=== PATIENT | female | born 1975 | race Caucasian/White ===

== ENCOUNTER 2019-01-05 19:39 | Emergency (ER) | payer SELFPAY ==
--- NOTE | 2019-01-05 19:57 | EDM.PDOC ---
ED HPI GENERAL MEDICAL PROBLEM - General Chief Complaint: General Stated Complaint: MEDICAL CLEARANCE Time Seen by Provider: 01/05/19 19:56 Source of Information: Reports: Patient History Limitations: Reports: No Limitations - History of Present Illness INITIAL COMMENTS - FREE TEXT/NARRATIVE: HISTORY AND PHYSICAL: History of present illness: Patient is a 43-year-old female who presents to the emergency room by law enforcement for medical clearance exam. Patient states she takes gabapentin daily and has this medication at home. She was brought to the emergency room for evaluation for this. Enforcement states that she will be released tonight on bail and should be a low take her medications when she gets home. Patient offers no other concerns or complaints. She is asymptomatic. Denies any injury, trauma or falls. Review of systems: As per history of present illness and below otherwise all systems reviewed and negative. Past medical history: As per history of present illness and as reviewed below otherwise noncontributory. Surgical history: As per history of present illness and as reviewed below otherwise noncontributory. Social history: See social history for further information Family history: As per history of present illness and as reviewed below otherwise noncontributory. Physical exam: General: Well-developed and well-nourished 43-year-old female. Alert and oriented. Nontoxic appearing and in no acute distress. HEENT: Atraumatic, normocephalic, pupils equal and reactive bilaterally, negative for conjunctival pallor or scleral icterus, mucous membranes moist, TMs normal bilaterally, throat clear, neck supple, nontender, trachea midline. No drooling or trismus noted. No meningeal signs. No hot potato voice noted. Lungs: Clear to auscultation, breath sounds equal bilaterally, chest nontender. Heart: S1S2, regular rate and rhythm without overt murmur Abdomen: Soft, nondistended, nontender. Skin: Intact, warm, dry. No lesions or rashes noted. Extremities: Atraumatic, moves all extremities per self without difficulty or deficits, negative for cords or calf pain. Neurovascular unremarkable. Neuro: Awake, alert, oriented. Cranial nerves II through XII unremarkable. Cerebellum unremarkable. Motor and sensory unremarkable throughout. Exam nonfocal. Notes: Patient declines the need for any diagnostics at this time. Vital signs are stable. Supportive care measures were reviewed and discussed. Voices understanding and is agreeable to plan of care. Denies any further questions or concerns at this time. Diagnostics: None Therapeutics: None Prescription: None Impression: Encounter for medical screening exam Plan: 1. Take your home medications as directed. 2. Follow up with primary care as directed. Return to ED as needed as discussed. Definitive disposition and diagnosis as appropriate pending reevaluation and review of above. - Related Data Allergies Allergy/AdvReac Type Severity Reaction Status Date / Time iodine Allergy Anaphylactic Verified 01/05/19 19:56 Shock shellfish derived Allergy Anaphylactic Verified 01/05/19 19:56 Shock Home Meds: Home Meds ALPRAZolam [Xanax] 01/05/19 [History] FLUoxetine [PROzac] 01/05/19 [History] Gabapentin [Neurontin] 800 mg PO Q6HR 01/05/19 [History] New Anti Psychotic Medication 01/05/19 [History] ED ROS GENERAL - Review of Systems Review Of Systems: Comprehensive ROS is negative, except as noted in HPI. ED EXAM, GENERAL - Physical Exam Exam: See Below (See dictation) Course - Vital Signs Last Recorded V/S: Last Vital Signs Temp 97 F 01/05/19 19:57 Pulse 109 H 01/05/19 19:57 Resp 20 01/05/19 19:57 BP 145/82 H 01/05/19 19:57 Pulse Ox 99 01/05/19 19:57 Departure - Departure Time of Disposition: 19:57 Disposition: Home, Self-Care 01 Clinical Impression: Encounter for medical screening examination - Discharge Information Instructions: Medical Screening Exam Referrals: PCP,None [Ordering Only Provider] - Forms: ED Department Discharge Additional Instructions: The following information is given to patients seen in the emergency department who are being discharged to home. This information is to outline your options for follow-up care. We provide all patients seen in our emergency department with a follow-up referral. The need for follow-up, as well as the timing and circumstances, are variable depending upon the specifics of your emergency department visit. If you don't have a primary care physician on staff, we will provide you with a referral. We always advise you to contact your personal physician following an emergency department visit to inform them of the circumstance of the visit and for follow-up with them and/or the need for any referrals to a consulting specialist. The emergency department will also refer you to a specialist when appropriate. This referral assures that you have the opportunity for follow-up care with a specialist. All of these measure are taken in an effort to provide you with optimal care, which includes your follow-up. Under all circumstances we always encourage you to contact your private physician who remains a resource for coordinating your care. When calling for follow-up care, please make the office aware that this follow-up is from your recent emergency room visit. If for any reason you are refused follow-up, please contact the [facility] Emergency Department at and asked to speak to the emergency department charge nurse. [facility] [address] [place] [id number] [facility] [address] [place] [id number] 1. Take your home medications as directed. 2. Follow up with primary care as directed. Return to ED as needed as discussed.
== END 2019-01-05 20:00 | disposition home or self-care (01) ==
LOC: MW.ED 19:39
DX: Z13.9 Encounter for screening, unspecified (principal); Z91.048 Other nonmedicinal substance allergy status; Z91.013 Allergy to seafood; Z79.899 Other long term (current) drug therapy
CPT/HCPCS: 99282

== ENCOUNTER 2019-07-07 12:44 | Emergency (ER) | payer SELFPAY ==
--- NOTE | 2019-07-07 13:19 | EDM.PDOC ---
ED HPI GENERAL MEDICAL PROBLEM - General Chief Complaint: General Stated Complaint: MEDICAL CLEARNACE Time Seen by Provider: 07/07/19 13:00 Source of Information: Reports: Patient History Limitations: Reports: No Limitations - History of Present Illness INITIAL COMMENTS - FREE TEXT/NARRATIVE: Patient is 43-year-old female with no medical history but psychiatric history presenting with complaint for medical clearance. Patient is under police custody. Patient has no medical complaints or psychiatric complaints at this time. Patient reports no physical injuries. Patient states she otherwise feels well. Patient denies any drug or alcohol use. Patient denies depression , suicidal ideations, homicidal ideations. Pmhx: None Pshx: None Family Hx: noncontributory Smoking history? no Etoh use? none Drug use? none Review of systems performed otherwise negative. I have reviewed the triage vital signs Const: Well nourished, well developed, appears stated age. No obvious trauma or evidence of intoxication. Eyes: PERRL, no conjunctival injection HENT: NCAT, Neck supple without meningismus CV: RRR, Warm, well-perfused extremities RESP: CTAB, Unlabored respiratory effort GI: soft, non-tender, non-distended, no masses MSK: No gross deformities appreciated Skin: Warm, dry. No rashes Neuro: Alert, issue clerk II-XII grossly intact. Sensation and motor function of extremities grossly intact. Psych: Appropriate mood and affect Assessment and plan: 43-year-old female presenting for medical clearance. Patient does not demonstrate any evidence of intoxication or physical injuries. Patient has no medical complaints at this time. Patient is appropriate for police custody. - Related Data Allergies Allergy/AdvReac Type Severity Reaction Status Date / Time iodine Allergy Anaphylactic Verified 07/07/19 12:57 Shock shellfish derived Allergy Anaphylactic Verified 07/07/19 12:57 Shock Home Meds: Home Meds . 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 Musculoskeletal History: Reports: None Neurological History: Reports: None Psychiatric History: Reports: None Endocrine/Metabolic History: Reports: None Hematologic History: Reports: None Immunologic History: Reports: None Oncologic (Cancer) History: Reports: None Dermatologic History: Reports: None - Infectious Disease History Infectious Disease History: Reports: None - Past Surgical History Head Surgeries/Procedures: Reports: None Social & Family History - Family History Family Medical History: Noncontributory - Tobacco Use Smoking Status *Q: Current Every Day Smoker Years of Tobacco use: 20 Packs/Tins Daily: 0.5 Used Tobacco, but Quit: No Second Hand Smoke Exposure: No - Caffeine Use Caffeine Use: Reports: Soda - Recreational Drug Use Recreational Drug Use: No ED ROS GENERAL - Review of Systems Review Of Systems: See Below ED EXAM, GENERAL - Physical Exam Exam: See Below Course - Vital Signs Last Recorded V/S: Last Vital Signs Temp 36.5 C 07/07/19 12:58 Pulse 72 07/07/19 13:26 Resp 17 07/07/19 13:26 BP 108/58 L 07/07/19 13:26 Pulse Ox 97 07/07/19 13:26 Departure - Departure Time of Disposition: 13:19 Disposition: Home, Self-Care 01 Clinical Impression: Encounter for medical screening examination - Discharge Information Instructions: Medical Screening Exam Referrals: PCP,None [Primary Care Provider] - Forms: ED Department Discharge Additional Instructions: The following information is given to patients seen in the emergency department who are being discharged to home. This information is to outline your options for follow-up care. We provide all patients seen in our emergency department with a follow-up referral. The need for follow-up, as well as the timing and circumstances, are variable depending upon the specifics of your emergency department visit. If you don't have a primary care physician on staff, we will provide you with a referral. We always advise you to contact your personal physician following an emergency department visit to inform them of the circumstance of the visit and for follow-up with them and/or the need for any referrals to a consulting specialist. The emergency department will also refer you to a specialist when appropriate. This referral assures that you have the opportunity for follow-up care with a specialist. All of these measure are taken in an effort to provide you with optimal care, which includes your follow-up. Under all circumstances we always encourage you to contact your private physician who remains a resource for coordinating your care. When calling for follow-up care, please make the office aware that this follow-up is from your recent emergency room visit. If for any reason you are refused follow-up, please contact the [facility] Emergency Department at and asked to speak to the emergency department charge nurse. Sepsis Event Note - Evaluation Sepsis Screening Result: No Definite Risk - Focused Exam Vital Signs: Vital Signs Temp Pulse Resp BP Pulse Ox 07/07/19 13:26 72 17 108/58 L 97 07/07/19 12:58 36.5 C 82 18 113/70 99 Date Exam was Performed: 07/07/19 Time Exam was Performed: 14:21
== END 2019-07-07 13:27 | disposition home or self-care (01) ==
LOC: MW.ED 12:44
CPT/HCPCS: 99282; 99283

== ENCOUNTER 2020-12-12 21:45 | Emergency (ER) | payer MEDICAID ==
[2020-12-12] MEDS ORDERED: Ketorolac 15 MG/ML SDV IM ONE (22:24)
[2020-12-12] MEDS ORDERED: Amoxicillin/Clavulanate K 875-125 MG Tab PO ONE (23:19)
--- NOTE | 2020-12-12 23:23 | EDM.PDOC ---
ED HPI GENERAL MEDICAL PROBLEM - General Chief Complaint: ENT Problem Stated Complaint: LIPS SWELLING, POSSIBLE ABCESS TOOTH Time Seen by Provider: 12/12/20 22:25 - History of Present Illness INITIAL COMMENTS - FREE TEXT/NARRATIVE: CHIEF COMPLAINT(S): "I believe I have an abscessed tooth." HISTORY OF PRESENT ILLNESS: This is a 45-year-old with 1 with a past medical history of dental care who comes to the emergency department with a chief complaint of "I believe I have an abscessed tooth." Patient states that she is believed she has an abscessed tooth. She states that she has been experiencing a toothache along the left upper tooth. She denies any fevers, chills, trismus, drooling, stridor. She denies any vision changes including double vision. She states that she has never had this before but rates her pain as 10 out of 10. She states it is improved now 10 to 7 out of 10 and describes it as a throbbing sensation. She states that the left side her face has become swollen. She has tried Aleve and Tylenol without any relief. She denies any exacerbating or relieving factors. She states this is been going on for a couple of days. REVIEW OF SYSTEMS: Constitutional: Denies fever, chills. Eyes: Denies eye pain Ears, Nose, Mouth, & Throat: Positive for left-sided dental pain and left-sided facial swelling. Denies earache, sore throat, drooling, trismus Cardiovascular: Denies chest pain Respiratory: Denies shortness of breath Gastrointestinal: Denies Nausea, vomiting, diarrhea, hematochezia. Genitourinary: Denies hematuria Skin:Denies a rash MSK: Denies joint pain Neurological: Denies blurred vision Psychiatric: Denies depression PAST MEDICAL HISTORY: As per history of present illness and as reviewed below otherwise noncontributory. SURGICAL HISTORY: As per history of present illness and as reviewed below otherwise noncontributory. SOCIAL HISTORY: As per history of present illness and as reviewed below otherwise noncontributory. FAMILY HISTORY: As per history of present illness and as reviewed below otherwise noncontributory. EXAMINATION OF ORGAN SYSTEMS/BODY AREAS: Constitutional: Blood pressure was 119/81, heart rate 101, respiratory rate 14 with an oxygen saturation 98% on room air. Temperature 36.2 General: Well-appearing woman who is in no acute distress Psychiatric: Appropriate mood and affect. HEad: Left-sided jaw swelling Eyes: No scleral icterus or conjunctival erythema pupils are equal round reactive to light. Extraocular movements intact. No nystagmus noted. ENMT: Moist mucous membranes. No pharyngeal erythema there are multiple dental caries on upper and lower jaw. There is mild gum erythema on the left upper jaw without any identifiable abscess. No trismus, drooling, stridor. Very poor dentition. Cardiovascular: Regular, rate, and rhythm. No gallops, murmurs, or rubs. Respiratory: Lungs clear to auscultation bilaterally. No wheezes, rales, or rhonchi. Neurological: Alert, GCS 15 MEDICAL DECISION MAKING AND COURSE IN THE ED WITH INTERPRETATION/REVIEW OF DIAGNOSTIC STUDIES: This is a 45-year-old woman without any significant past medical history who presents to the emergency department with dental caries and possible dental abscess. The patient is mildly tachycardic but overall appears well. We will provide the patient with Toradol for pain relief and provide the patient with her first dose of Augmentin here. I did discuss strict return precautions with the patient. She was amenable discharge and had no further questions DISPOSITION: The patient was discharged home in stable condition. The patient will follow up with dentist as soon as possible CONDITION: Fair PROCEDURES: None FINAL IMPRESSION(S)/DIAGNOSES: 1. Acute dental pain likely secondary to dental abscess 2. Poor dentition secondary to dental caries Aldo Heath M.D. Upper Tooth/Teeth Pain Score (Numeric/FACES): 8 - Related Data Allergies Allergy/AdvReac Type Severity Reaction Status Date / Time iodine Allergy Anaphylactic Verified 12/12/20 22:24 Shock shellfish derived Allergy Anaphylactic Verified 12/12/20 22:24 Shock Home Meds: Home Meds Amoxicillin/Potassium Clav [Augmentin 875-125 Tablet] 1 each PO BID #14 tablet 12/12/20 [Rx] Naproxen 250 mg PO TID #21 tablet 12/12/20 [Rx] Past Medical History - Past Health History Medical/Surgical History: Denies Medical/Surgical History HEENT History: Reports: None Cardiovascular History: Reports: None Respiratory History: Reports: None Gastrointestinal History: Reports: None Genitourinary History: Reports: None 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 Musculoskeletal History: Reports: None Neurological History: Reports: None Psychiatric History: Reports: None Endocrine/Metabolic History: Reports: None Hematologic History: Reports: None Immunologic History: Reports: None Oncologic (Cancer) History: Reports: None Dermatologic History: Reports: None - Infectious Disease History Infectious Disease History: Reports: Chicken Pox - Past Surgical History Head Surgeries/Procedures: Reports: None Social & Family History - Family History Family Medical History: No Pertinent Family History - Caffeine Use Caffeine Use: Reports: Soda - Recreational Drug Use Recreational Drug Use: No ED ROS GENERAL - Review of Systems Review Of Systems: See Below ED EXAM, GENERAL - Physical Exam Exam: See Below Course - Vital Signs Last Recorded V/S: Last Vital Signs Temp 36.2 C 12/12/20 22:18 Pulse 78 12/12/20 23:19 Resp 17 12/12/20 23:19 BP 110/66 12/12/20 23:19 Pulse Ox 96 12/12/20 23:19 - Orders/Labs/Meds Meds: Medications Discontinued Medications Generic Name Dose Route Start Last Admin Trade Name Jamshid PRN Reason Stop Dose Admin Amoxicillin/Clavulanate Potassium 1 tab 12/12/20 23:19 12/12/20 23:31 Amoxicillin/Clavulanate K 875-125 Mg Tab PO 12/12/20 23:20 1 tab ONETIME ONE Administration Ketorolac Tromethamine 15 mg 12/12/20 22:24 12/12/20 22:33 Ketorolac 15 Mg/Ml Sdv IM 12/12/20 22:25 15 mg ONETIME ONE Administration Departure - Departure Time of Disposition: 23:23 Disposition: Home, Self-Care 01 Condition: Fair Clinical Impression: Dental infection - Discharge Information *PRESCRIPTION DRUG MONITORING PROGRAM REVIEWED*: No *COPY OF PRESCRIPTION DRUG MONITORING REPORT IN PATIENT JOHANNY: No Prescriptions: Amoxicillin/Potassium Clav [Augmentin 875-125 Tablet] 1 each PO BID #14 tablet Naproxen 250 mg PO TID #21 tablet Instructions: Dental Abscess, [id number] Referrals: PCP,None [Primary Care Provider] - Forms: ED Department Discharge Additional Instructions: You were evaluated today on an emergent basis. At this time I do believe you have a dental infection. We did start you on antibiotics here and I recommend you use the antibiotic as prescribed for the next 7 days. I recommend you use naproxen and Tylenol for pain relief and follow-up with dentistry as soon as possible. Please return to the emergency department if you have any new or worsening symptoms. Please use: Tylenol 500-1000mg every 6 hours (DO NOT TAKE MORE THAN 4000mg in 1 day) Naproxen 250mg every 8 hours (Take with food as it can cause ulcers, GI upset) [facility] [address] [place] [id number] [facility] [address] [place] [id number] The patient is informed of any results of their evaluation and diagnostic workup and all questions are answered. They are given discharge instructions and return precautions. The patient is stable for discharge. The patient states they understand and agree with the plan and that they will return if their symptoms get worse or if they have any new concerns. The following information is given to patients seen in the emergency department who are being discharged to home. This information is to outline your options for follow-up care. We provide all patients seen in our emergency department with a follow-up referral. The need for follow-up, as well as the timing and circumstances, are variable depending upon the specifics of your emergency department visit. If you don't have a primary care physician on staff, we will provide you with a referral. We always advise you to contact your personal physician following an emergency department visit to inform them of the circumstance of the visit and for follow-up with them and/or the need for any referrals to a consulting specialist. The emergency department will also refer you to a specialist when appropriate. This referral assures that you have the opportunity for follow-up care with a specialist. All of these measure are taken in an effort to provide you with optimal care, which includes your follow-up. Under all circumstances we always encourage you to contact your private physician who remains a resource for coordinating your care. When calling for follow-up care, please make the office aware that this follow-up is from your recent emergency room visit. If for any reason you are refused follow-up, please contact the [facility] Emergency Department at and asked to speak to the emergency department charge nurse. Sepsis Event Note (ED) - Evaluation Sepsis Screening Result: No Definite Risk - Focused Exam Vital Signs: Vital Signs Temp Pulse Resp BP Pulse Ox 12/12/20 23:19 78 17 110/66 96 12/12/20 22:18 36.2 C 101 H 14 119/81 98
== END 2020-12-12 23:32 | disposition home or self-care (01) ==
LOC: MW.ED 21:45
DX: K04.7 Periapical abscess without sinus (principal); K02.9 Dental caries, unspecified; K00.7 Teething syndrome; Z91.013 Allergy to seafood; Z88.8 Allergy status to other drugs, medicaments and biological substances
CPT/HCPCS: 96372; 99283; A9270; J1885

== ENCOUNTER 2023-06-16 14:40 | Emergency (ER) | payer MEDICARE ==
[2023-06-16] MEDS: Furosemide 20 MG Tab PO ONE (15:32)
[2023-06-16] MEDS: Cephalexin 500 MG Cap PO ONE (15:32)
[2023-06-16 15:38] LABS: BASOPHILS ABSOLUTE AUTO 0.04 K/uL (0.00-0.20); BASOPHILS PERCENT AUTO 0.3 % (0.0-1.0); EOSINOPHILS ABSOLUTE AUTO 0.13 K/uL (0.00-0.45); EOSINOPHILS PERCENT AUTO 0.9 % (0.0-6.0); HEMATOCRIT 32.5 % (37.0-47.0); HEMOGLOBIN 11.2 g/dL (12.0-16.0); IMMATURE GRAN ABSOLUTE AUTO 0.05 K/uL (0.00-0.05); IMMATURE GRAN PERCENT AUTO 0.3 % (0.0-0.4); LYMPHOCYTES ABSOLUTE AUTO 1.19 K/uL (1.00-4.80); LYMPHOCYTES PERCENT AUTO 8.1 % (24.0-44.0); MEAN CORPUSCULAR HEMOGLOBIN 30.6 pg (28.0-32.0); MEAN CORPUSCULAR HGB CONC 34.5 g/dL (32.0-36.0); MEAN CORPUSCULAR VOLUME 88.8 fL (83.0-99.0); MEAN PLATELET VOLUME 9.8 fL (9.4-12.3); MONOCYTES ABSOLUTE AUTO 1.05 K/uL (0.00-0.80); MONOCYTES PERCENT AUTO 7.2 % (0.0-8.0); NEUTROPHILS ABSOLUTE AUTO 12.18 K/uL (1.80-7.70); NEUTROPHILS PERCENT AUTO 83.2 % (41.0-71.0); PLATELET COUNT,PLT 280 K/uL (150-400); RED BLOOD CELL COUNT 3.66 M/uL (4.10-5.30); WHITE BLOOD CELL COUNT,WBC 14.64 K/uL (3.9-11.3)
[2023-06-16 16:20] LABS: ALBUMIN 3.5 g/dL (3.4-5.0); BILIRUBIN TOTAL 0.9 mg/dL (0.2-1.0); CALCIUM 8.6 mg/dL (8.5-10.1); CARBON DIOXIDE,CO2 26.8 mmol/L (21.0-32.0); CREATININE 0.7 mg/dL (0.6-1.0); EST CRCL DRUG DOSING (CG) 97.65 mL/min; PROTEIN TOTAL,TP 6.9 g/dL (6.4-8.2)
== END 2023-06-16 16:58 | disposition home or self-care (01) ==
LOC: MW.ED 14:40
DX: L03.116 Cellulitis of left lower limb (principal); R60.0 Localized edema; Z91.041 Radiographic dye allergy status; Z91.013 Allergy to seafood
CPT/HCPCS: 36415; 71045; 80053; 83880; 85025; 93005; 99284; A9270; 93010

== ENCOUNTER 2024-01-12 09:11 | Emergency (ER) | payer MEDICARE ==
[2024-01-12] MEDS ORDERED: Sodium Chloride 0.9% 10 ML Syringe FLUSH PRN (09:25)
[2024-01-12] MEDS ORDERED: Sodium Chloride 0.9% 2.5 ML Syringe FLUSH PRN (09:25)
[2024-01-12 10:34] LABS: BASOPHILS ABSOLUTE AUTO 0.06 K/uL (0.00-0.20); BASOPHILS PERCENT AUTO 0.5 % (0.0-1.0); EOSINOPHILS ABSOLUTE AUTO 0.45 K/uL (0.00-0.45); EOSINOPHILS PERCENT AUTO 3.9 % (0.0-6.0); HEMOGLOBIN 11.6 g/dL (12.0-16.0); IMMATURE GRAN ABSOLUTE AUTO 0.03 K/uL (0.00-0.05); IMMATURE GRAN PERCENT AUTO 0.3 % (0.0-0.4); LYMPHOCYTES ABSOLUTE AUTO 1.72 K/uL (1.00-4.80); LYMPHOCYTES PERCENT AUTO 14.8 % (24.0-44.0); MEAN CORPUSCULAR HEMOGLOBIN 30.6 pg (28.0-32.0); MEAN CORPUSCULAR HGB CONC 34.1 g/dL (32.0-36.0); MEAN CORPUSCULAR VOLUME 89.7 fL (83.0-99.0); MONOCYTES PERCENT AUTO 7.8 % (0.0-8.0); NEUTROPHILS ABSOLUTE AUTO 8.45 K/uL (1.80-7.70); NEUTROPHILS PERCENT AUTO 72.7 % (41.0-71.0); PLATELET COUNT,PLT 293 K/uL (150-400); RED BLOOD CELL COUNT 3.79 M/uL (4.10-5.30); WHITE BLOOD CELL COUNT,WBC 11.61 K/uL (3.9-11.3)
[2024-01-12 11:13] LABS: A/G RATIO 1.3 (0.9-1.6); ALBUMIN 3.7 g/dL (3.4-5.0); BILIRUBIN TOTAL 0.9 mg/dL (0.2-1.0); CALCIUM 8.8 mg/dL (8.5-10.1); CARBON DIOXIDE,CO2 27.3 mmol/L (21.0-32.0); CREATININE 0.8 mg/dL (0.6-1.0); EST CRCL DRUG DOSING (CG) 84.54 mL/min; POTASSIUM,K 3.7 mmol/L (3.5-5.1); PROTEIN TOTAL,TP 6.6 g/dL (6.4-8.2); TSH ULTRASENSITIVE 1.4 uIU/mL (0.36-3.74)
== END 2024-01-12 12:28 | disposition home or self-care (01) ==
LOC: MW.ED 09:11
DX: K04.7 Periapical abscess without sinus (principal); Z91.013 Allergy to seafood; Z91.041 Radiographic dye allergy status; Z79.899 Other long term (current) drug therapy; Z75.8 Other problems related to medical facilities and other health care
CPT/HCPCS: 36415; 70486; 70486-26; 70490; 70490-26; 80053; 84443; 85025; 99284

== ENCOUNTER 2024-05-27 09:32 | Emergency (ER) | payer MEDICARE, MEDICAID ==
[2024-05-27] MEDS: LORazepam 1 MG Tab PO ONE (09:55)
== END 2024-05-27 11:49 | disposition home or self-care (01) ==
LOC: MW.ED 09:32
DX: F41.9 Anxiety disorder, unspecified (principal); F17.210 Nicotine dependence, cigarettes, uncomplicated; Z91.041 Radiographic dye allergy status; Z91.013 Allergy to seafood; Z79.899 Other long term (current) drug therapy
CPT/HCPCS: 99282; 99283; A9270-GY

== ENCOUNTER 2024-08-09 20:10 | Emergency (ER) | payer MEDICARE, MEDICAID ==
[2024-08-09] MEDS: Lidocaine 2% Viscous Solution 15 ML UD PO ONE (20:51)
[2024-08-09] MEDS: Benzocaine 20% Topical Spray UD MUCMEM ONE (20:51)
== END 2024-08-09 20:53 | disposition home or self-care (01) ==
LOC: MW.ED 20:10
DX: K04.7 Periapical abscess without sinus (principal); Z91.013 Allergy to seafood; Z91.041 Radiographic dye allergy status; Z79.899 Other long term (current) drug therapy; F17.200 Nicotine dependence, unspecified, uncomplicated
CPT/HCPCS: 99282; A9270; 99283

== ENCOUNTER 2024-08-25 11:11 | Emergency (ER) | payer MEDICARE, MEDICAID | END 2024-08-25 11:43 | disposition home or self-care (01) | LOC: MW.ED 11:11 | DX: K04.7 Periapical abscess without sinus (principal); Z75.3 Unavailability and inaccessibility of health-care facilities; Z91.041 Radiographic dye allergy status; Z91.013 Allergy to seafood; Z79.899 Other long term (current) drug therapy | CPT/HCPCS: 99283 ==

== ENCOUNTER 2024-08-25 19:46 | Emergency (ER) | payer MEDICARE, MEDICAID ==
[2024-08-25 21:26] LABS: BASOPHILS ABSOLUTE AUTO 0.06 K/uL (0.00-0.20); BASOPHILS PERCENT AUTO 0.5 % (0.0-1.0); EOSINOPHILS ABSOLUTE AUTO 0.22 K/uL (0.00-0.45); EOSINOPHILS PERCENT AUTO 1.7 % (0.0-6.0); IMMATURE GRAN ABSOLUTE AUTO 0.04 K/uL (0.00-0.05); IMMATURE GRAN PERCENT AUTO 0.3 % (0.0-0.4); LYMPHOCYTES ABSOLUTE AUTO 1.67 K/uL (1.00-4.80); LYMPHOCYTES PERCENT AUTO 12.9 % (24.0-44.0); MEAN PLATELET VOLUME 9.5 fL (9.4-12.3); MONOCYTES ABSOLUTE AUTO 0.67 K/uL (0.00-0.80); MONOCYTES PERCENT AUTO 5.2 % (0.0-8.0); NEUTROPHILS ABSOLUTE AUTO 10.26 K/uL (1.80-7.70); NEUTROPHILS PERCENT AUTO 79.4 % (41.0-71.0); NRBC ABSOLUTE 0.00 K/uL (0.00-0.02); NRBC PERCENT 0.0 /100WBC (0.0-0.2); PLATELET COUNT,PLT 477 K/uL (150-400); RED BLOOD CELL COUNT 3.94 M/uL (4.10-5.30); WHITE BLOOD CELL COUNT,WBC 12.92 K/uL (3.9-11.3)
[2024-08-25] MEDS: Ampicillin/Sulbactam Na 3 GM in Sodium Chloride 0.9% 100 ML IV ONE (21:28)
[2024-08-25 21:57] LABS: A/G RATIO 1.1 (0.9-1.6); ALANINE AMINOTRANSFERASE,ALT 27 IU/L (14-63); ASPARTATE AMNIOTRANSFERASE,AST 22 IU/L (15-37); BILIRUBIN TOTAL 0.6 mg/dL (0.2-1.0); BLOOD UREA NITROGEN,BUN 15 mg/dL (7.0-18.0); CARBON DIOXIDE,CO2 26.0 mmol/L (21.0-32.0); CHLORIDE,CL 102 mmol/L (98-107); CREATININE 1.0 mg/dL (0.6-1.0); GLUCOSE RANDOM 89 mg/dL (74-106); POTASSIUM,K 4.0 mmol/L (3.5-5.1); PROTEIN TOTAL,TP 7.4 g/dL (6.4-8.2); SODIUM,NA 138 mmol/L (136-145)
[2024-08-25 21:59] LABS: ESTIMATED GFR 69 mL/min (>60)
[2024-08-25] MEDS: Ketorolac 30 MG/ML SDV IVPUSH ONE (23:14)
== END 2024-08-25 23:19 | disposition home or self-care (01) ==
LOC: MW.ED 19:46
DX: K04.7 Periapical abscess without sinus (principal); K02.9 Dental caries, unspecified; L03.211 Cellulitis of face; Z88.8 Allergy status to other drugs, medicaments and biological substances; Z91.013 Allergy to seafood; Z79.899 Other long term (current) drug therapy
CPT/HCPCS: 36415; 70486; 80053; 85025; 85652; 86140; 96361; 96365; 96375; 99284; J0295; J1100; J1885; J7030; 99283